=== PATIENT | female | born 1975 | race American Indian/Alaskan Native ===

== ENCOUNTER 2017-01-07 23:19 | Emergency (ER) | payer SELFPAY ==
[2017-01-07 23:36] VITALS: BP 128/71
[2017-01-08] MEDS ORDERED: MOTRIN PO ONE (00:29)
== END 2017-01-08 01:00 | disposition left against medical advice (07) ==
LOC: ED 23:19
DX: M54.5 Low back pain (principal); Z53.21 Procedure and treatment not carried out due to patient leaving prior to being seen by health care provider

== ENCOUNTER 2017-03-01 11:39 | Emergency (ER) | payer SELFPAY ==
[2017-03-01 12:08] VITALS: BP 135/86
--- NOTE | 2017-03-04 19:11 | ED Elopement Review ---
ED Pt Elopement review - Call Back decision Pt Call Back Decision: Pt to F/U with PMD
== END 2017-03-01 16:10 | disposition left against medical advice (07) ==
LOC: ED 11:39
DX: J02.9 Acute pharyngitis, unspecified (principal); R07.89 Other chest pain; Z53.21 Procedure and treatment not carried out due to patient leaving prior to being seen by health care provider
CPT/HCPCS: 93005; 93010